=== PATIENT | female | born 1975 | race Caucasian/White ===

== ENCOUNTER 2018-12-23 11:27 | Emergency (ER) | payer OTHER ==
[~2018-12-23] VITALS: Ht 180.3 cm; Wt 77.1 kg
[2018-12-23] MEDS ORDERED: VALSARTAN-HCTZ1 EAC1 (11:45)
== END 2018-12-23 15:46 | disposition home or self-care (01) ==
LOC: ER 11:27
DX: N93.8 Other specified abnormal uterine and vaginal bleeding (principal)